=== PATIENT | male | born 1955 | race Caucasian/White ===

== ENCOUNTER 2017-12-16 12:02 | Inpatient (IN) | payer MEDICAID ==
[~2017-12-16] VITALS: Ht 172.7 cm; Wt 65.8 kg
--- NOTE | ~2017-12-16 | CN ---
PATIENT NAME:DENISSE ROSALES MEDICAL RECORD: [id number] : 55 LOCATION:[id number] ADMIT DATE: 12/16/17 ACCOUNT: [id number] CONSULTING PHYSICIAN: LILIANE AVILES MD REFERRING PHYSICIAN: BRAVO GARCÍA MD DATE OF CONSULTATION: 12/17/2017 CONSULT REQUESTING PHYSICIAN: Bravo García MD REASON FOR CONSULTATION: Pneumonia, right upper lobe. HISTORY OF PRESENT ILLNESS: Mr. Rosales is a 62-year-old gentleman who came into the ER with coughing, wheezing, and shortness of breath with mild exertion. He also is having a pleuritic type of chest pain. He was coughing yellow color sputum production. He is a lifelong smoker. REVIEW OF THE SYSTEMS: As in history of present illness. PAST MEDICAL HISTORY: Nonsignificant. ALLERGIES: No known drug allergies. MEDICATIONS: He is taking just one aspirin a day. PERSONAL AND SOCIAL HISTORY: The patient still continues to smoke. He is also drinking on regular basis. FAMILY HISTORY: Noncontributory. PHYSICAL EXAMINATION: GENERAL: Now, the patient is lying comfortably in bed. He is not in acute distress. VITAL SIGNS: The blood pressure is 116/73, pulse is 97, respiration is 20, temperature is 97.9, and SpO2 is 96% on one liter nasal cannula. HEENT: Conjunctivae are pink. Sclerae are not icteric. NECK: Neck is supple. No JVD. CHEST: There is prolonged expiration with wheezing. There is crackle at the right upper lobe. HEART: Rhythm regular. Normal sound. No murmur. ABDOMEN: Abdomen is soft. Bowel sounds present. No hepatosplenomegaly. RECTAL: Deferred. EXTREMITIES: No cyanosis. No clubbing. No pedal edema. SKIN: The skin is warm. Normal turgor. CENTRAL NERVOUS SYSTEM: The patient is awake and alert. There is no obvious cranial nerve abnormality. The gait was not tested. DIAGNOSTIC DATA: CTA of the chest; there is no pulmonary embolism. There is infiltrate in right upper lobe. There is also right middle lobe perihilar pneumonia. LABORATORY DATA: CBC; WBC 6.1, hemoglobin 13.2, hematocrit 35.4, and platelet count is 208. Chemistry; sodium is 132, potassium 3.2, BUN is 24, creatinine is 1. ABG; the pH is 7.48, pCO2 is 26.1, the pO2 is 62, and the bicarb is 19.5. This was done on the 2 liters nasal cannula. CONSULT REPORT [id number] DENISSE ROSALES IMPRESSION: 1. Acute hypoxic respiratory failure. 2. Acute exacerbation of COPD. 3. Pneumonia, right upper lobe and right middle lobe, most likely community-acquired pneumonia. 4. Tobacco dependence syndrome. 5. Hyponatremia. 6. Dyspnea. RECOMMENDATION: 1. Continue supplemental oxygen. 2. Albuterol/ipratropium nebulizer. 3. Brovana and budesonide nebulizer. 4. Methylprednisolone IV. 5. Mucolytics. 6. Followup labs and chest radiograph. 7. Nicotine patch. The patient was counseled to quit smoking. Dr. García, thank you for involving me in the care of Mr. Rosales. TRANSINT:[id number] Voice Confirmation ID: [id number] DOCUMENT ID: [id number] LILIANE AVILES MD at 1301 CC: [id number] DICTATION DATE: 12/17/17 1445 [employer] ASBESTOS: 12/17/17 1602 ADM IN [facility] [address] [place] [address]
[2017-12-16 11:41] VITALS: BP 150/97
[2017-12-16] MEDS ORDERED: BAYER CHEWABLE81 MG PO (12:06)
[2017-12-16 12:41] LABS: BASOPHILS 0.2 % (0-2); EOSINOPHILS 0 % (0-7); HEMATOCRIT 38.1 % (42.0-54.0); HEMOGLOBIN 13.2 g/dL (13.5-17.5); IMMATURE GRANULOCYTES 0.2 % (0-5); LYMPHOCYTES 5.3 % (15-50); MCH 32.8 pg (26.0-34.0); MCHC 34.6 g/dL (31.0-37.0); MCV 94.5 fL (80.0-100.0); MEAN PLATELET VOLUME 9.2 fL (7.4-10.4); MONOCYTES 2.6 % (2-11); NEUTROPHILS 91.7 % (40-80); PLATELET COUNT 188 10x3/uL (130-400); RBC 4.03 10x6/uL (4.20-6.10); RDW 12.5 % (11.5-14.5)
[2017-12-16 12:50] LABS: APTT 38.6 SECONDS (22.8-39.4); INR 1.34 (0.85-1.17); PROTIME 16.1 SECONDS (11.6-15.0)
[2017-12-16 12:51] LABS: D-DIMER-QUANTITATIVE 3.95 ug/mLFEU (0.20-0.54)
[2017-12-16 12:54] LABS: ALBUMIN 2.7 g/dL (3.4-5.0); ALKALINE PHOSPHATASE 45 U/L (46-116); ALT (SGPT) 21 U/L (10-68); CALC OSMOLALITY 266 mosm/kg (275-300); CALCIUM 8.2 mg/dL (8.5-10.1); CARBON DIOXIDE 24.4 mmol/L (21.0-32.0); CHLORIDE - SERUM 92 mmol/L (98-107); CREATININE - SERUM 1.5 mg/dL (0.6-1.3); GLUCOSE 110 mg/dL (74-106); POTASSIUM - SERUM 4.2 mmol/L (3.5-5.1); SODIUM 127 mmol/L (136-145); UREA NITROGEN 43 mg/dL (7-18); eGFR NON AFRICAN AMERICAN 50 mL/min (90-120)
[2017-12-16 13:06] LABS: CKMB 0.4 U/L (0.0-3.6); CREATINE KINASE 16 UL (21-232); PRO BNP 454 pg/mL (0-125); THYROID STIMULATING HORMONE 1.05 uIU/mL (0.36-3.74); TROPONIN-I 0.036 ng/mL (0.000-0.060)
[2017-12-16 13:26] LABS: APPEARANCE CLEAR (CLEAR); BILIRUBIN NEGATIVE (NEGATIVE); COLOR YELLOW (YELLOW); GLUCOSE NEGATIVE (NEGATIVE); KETONE NEGATIVE (NEGATIVE); NITRITE NEGATIVE (NEGATIVE); PROTEIN NEGATIVE (NEGATIVE); UROBILINOGEN NORMAL (NORMAL)
[2017-12-16 13:29] LABS: C-REACTIVE PROTEIN 49.1 mg/dL (0.0-0.9)
[2017-12-16 13:34] VITALS: BP 124/69
[2017-12-16 14:31] VITALS: BP 113/68
[2017-12-16 17:00] VITALS: BP 107/67
[2017-12-16 20:00] VITALS: BP 110/67
[2017-12-17 03:42] VITALS: BP 107/67; BMI 22.0
[2017-12-17 04:00] VITALS: BP 115/68
[2017-12-17 05:18] LABS: BASOPHILS 0.2 % (0-2); EOSINOPHILS 0.2 % (0-7); HEMATOCRIT 35.4 % (42.0-54.0); HEMOGLOBIN 13.2 g/dL (13.5-17.5); IMMATURE GRANULOCYTES 0.7 % (0-5); MCH 34.8 pg (26.0-34.0); MCHC 37.3 g/dL (31.0-37.0); MCV 93.4 fL (80.0-100.0); MEAN PLATELET VOLUME 9.8 fL (7.4-10.4); MONOCYTES 2.8 % (2-11); NEUTROPHILS 93.1 % (40-80); PLATELET COUNT 208 10x3/uL (130-400); RBC 3.79 10x6/uL (4.20-6.10); RDW 12.4 % (11.5-14.5); WBC 6.1 10x3/uL (4.8-10.8)
[2017-12-17 05:43] LABS: ALKALINE PHOSPHATASE 32 U/L (46-116); BILIRUBIN - TOTAL 0.44 mg/dL (0.2-1.3); CALCIUM 8.3 mg/dL (8.5-10.1); CHLORIDE - SERUM 98 mmol/L (98-107); MAGNESIUM - SERUM 1.4 mg/dL (1.8-2.4); SODIUM 132 mmol/L (136-145)
[2017-12-17 05:45] LABS: ALT (SGPT) 14 U/L (10-68); CALC OSMOLALITY 272 mosm/kg (275-300); GLUCOSE 164 mg/dL (74-106); POTASSIUM - SERUM 3.2 mmol/L (3.5-5.1); UREA NITROGEN 24 mg/dL (7-18); eGFR NON AFRICAN AMERICAN 80 mL/min (90-120)
[2017-12-17 09:39] VITALS: BP 110/66
[2017-12-17 12:48] VITALS: BP 116/73
[2017-12-17 16:48] VITALS: BP 119/73
[2017-12-17 20:00] VITALS: BP 130/75
[2017-12-18] VITALS: BP 116/67
[2017-12-18 04:00] VITALS: BP 134/71
[2017-12-18 07:33] LABS: BASOPHILS 0.2 % (0-2); EOSINOPHILS 0 % (0-7); HEMATOCRIT 31.5 % (42.0-54.0); HEMOGLOBIN 11.3 g/dL (13.5-17.5); IMMATURE GRANULOCYTES 1.4 % (0-5); LYMPHOCYTES 5.7 % (15-50); MCH 33.1 pg (26.0-34.0); MCHC 35.9 g/dL (31.0-37.0); MCV 92.4 fL (80.0-100.0); MEAN PLATELET VOLUME 9.3 fL (7.4-10.4); MONOCYTES 9.3 % (2-11); NEUTROPHILS 83.4 % (40-80); PLATELET COUNT 188 10x3/uL (130-400); RBC 3.41 10x6/uL (4.20-6.10); RDW 12.4 % (11.5-14.5); WBC 6.7 10x3/uL (4.8-10.8)
[2017-12-18 07:59] LABS: ALBUMIN 1.8 g/dL (3.4-5.0); ALKALINE PHOSPHATASE 32 U/L (46-116); ALT (SGPT) 13 U/L (10-68); BILIRUBIN - TOTAL 0.28 mg/dL (0.2-1.3); CALCIUM 8.1 mg/dL (8.5-10.1); CHLORIDE - SERUM 101 mmol/L (98-107); GLUCOSE 142 mg/dL (74-106); MAGNESIUM - SERUM 1.3 mg/dL (1.8-2.4); POTASSIUM - SERUM 3.2 mmol/L (3.5-5.1); PROTEIN - SERUM 4.9 g/dL (6.4-8.2); SODIUM 138 mmol/L (136-145)
[2017-12-18 08:00] LABS: CALC OSMOLALITY 279 mosm/kg (275-300); CREATININE - SERUM 0.7 mg/dL (0.6-1.3); UREA NITROGEN 17 mg/dL (7-18); eGFR NON AFRICAN AMERICAN > 90 mL/min (90-120)
[2017-12-18 08:46] VITALS: BP 127/73
[2017-12-18 12:48] VITALS: BP 122/68
[2017-12-18 16:45] VITALS: BP 120/65
[2017-12-19 06:04] LABS: BASOPHILS 0.1 % (0-2); EOSINOPHILS 0 % (0-7); HEMATOCRIT 31.4 % (42.0-54.0); HEMOGLOBIN 11.3 g/dL (13.5-17.5); IMMATURE GRANULOCYTES 5.8 % (0-5); LYMPHOCYTES 4.3 % (15-50); MCH 33.3 pg (26.0-34.0); MCV 92.6 fL (80.0-100.0); MEAN PLATELET VOLUME 9.5 fL (7.4-10.4); MONOCYTES 9.5 % (2-11); NEUTROPHILS 80.3 % (40-80); PLATELET COUNT 193 10x3/uL (130-400); RBC 3.39 10x6/uL (4.20-6.10); RDW 12.7 % (11.5-14.5)
[2017-12-19 06:18] VITALS: BP 132/71
[2017-12-19 06:19] LABS: WBC 10.1 10x3/uL (4.8-10.8)
[2017-12-19 06:36] LABS: ALBUMIN 1.8 g/dL (3.4-5.0); ALKALINE PHOSPHATASE 44 U/L (46-116); BILIRUBIN - TOTAL 0.19 mg/dL (0.2-1.3); CALC OSMOLALITY 282 mosm/kg (275-300); CALCIUM 8.4 mg/dL (8.5-10.1); CARBON DIOXIDE 29.5 mmol/L (21.0-32.0); CHLORIDE - SERUM 103 mmol/L (98-107); CREATININE - SERUM 0.7 mg/dL (0.6-1.3); GLUCOSE 161 mg/dL (74-106); MAGNESIUM - SERUM 1.4 mg/dL (1.8-2.4); PROTEIN - SERUM 5.8 g/dL (6.4-8.2); SODIUM 139 mmol/L (136-145); UREA NITROGEN 18 mg/dL (7-18); eGFR NON AFRICAN AMERICAN > 90 mL/min (90-120)
[2017-12-19 06:39] LABS: ALT (SGPT) 28 U/L (10-68); POTASSIUM - SERUM 3.3 mmol/L (3.5-5.1)
[2017-12-19 08:00] VITALS: BP 144/76
[2017-12-19 13:50] VITALS: Ht 172.7 cm; Wt 65.8 kg
[2017-12-19 18:19] VITALS: BP 107/63
[2017-12-20 05:09] VITALS: BP 101/57
[2017-12-20 06:10] LABS: BASOPHILS 0.3 % (0-2); EOSINOPHILS 0.1 % (0-7); HEMATOCRIT 33.4 % (42.0-54.0); HEMOGLOBIN 11.7 g/dL (13.5-17.5); IMMATURE GRANULOCYTES 8.4 % (0-5); LYMPHOCYTES 6.7 % (15-50); MCH 32.9 pg (26.0-34.0); MCV 93.8 fL (80.0-100.0); MEAN PLATELET VOLUME 9.4 fL (7.4-10.4); MONOCYTES 8.4 % (2-11); NEUTROPHILS 76.1 % (40-80); RBC 3.56 10x6/uL (4.20-6.10); RDW 12.9 % (11.5-14.5)
[2017-12-20 06:24] LABS: ALBUMIN 1.9 g/dL (3.4-5.0); ALKALINE PHOSPHATASE 47 U/L (46-116); BILIRUBIN - TOTAL 0.28 mg/dL (0.2-1.3); CALCIUM 8.3 mg/dL (8.5-10.1); CARBON DIOXIDE 30.7 mmol/L (21.0-32.0); CHLORIDE - SERUM 101 mmol/L (98-107); CREATININE - SERUM 0.6 mg/dL (0.6-1.3); MAGNESIUM - SERUM 1.1 mg/dL (1.8-2.4); POTASSIUM - SERUM 3.7 mmol/L (3.5-5.1); PROTEIN - SERUM 5.9 g/dL (6.4-8.2); SODIUM 137 mmol/L (136-145); UREA NITROGEN 17 mg/dL (7-18); eGFR NON AFRICAN AMERICAN > 90 mL/min (90-120)
[2017-12-20 06:25] LABS: ALT (SGPT) 46 U/L (10-68); CALC OSMOLALITY 275 mosm/kg (275-300); GLUCOSE 102 mg/dL (74-106)
[2017-12-20 06:26] LABS: PLATELET COUNT 259 10x3/uL (130-400); WBC 13.5 10x3/uL (4.8-10.8)
[2017-12-20 08:14] VITALS: BP 142/82
[2017-12-20 11:56] VITALS: BP 119/67
[2017-12-20] MEDS ORDERED: PULMICORT0.5 MG/21 UPD (12:36)
[2017-12-20] MEDS ORDERED: VENTOLIN HFA18 GM INH (12:36)
[2017-12-20] MEDS ORDERED: PREDNISONE10 MG PO (12:36)
[2017-12-20] MEDS ORDERED: Nicoderm [PBKC] TRANSDERM (12:36)
[2017-12-20] MEDS ORDERED: TESSALON PERLE100 MG PO (12:36)
[2017-12-20] MEDS ORDERED: MUCINEX600 MG PO (12:36)
[2017-12-20] MEDS ORDERED: FLORAJEN3 CAPS460 MG PO (12:36)
== END 2017-12-20 16:42 | disposition home or self-care (01) | DRG 193 ==
LOC: D.ER 12:02 → D.EDHOLD 16:25 → D.MS 16:25
PROVIDERS: Family Medicine
DX: J18.1 Lobar pneumonia, unspecified organism (principal); J96.01 Acute respiratory failure with hypoxia; J44.0 Chronic obstructive pulmonary disease with (acute) lower respiratory infection; J44.1 Chronic obstructive pulmonary disease with (acute) exacerbation; E87.1 Hypo-osmolality and hyponatremia; F17.203 Nicotine dependence unspecified, with withdrawal; E86.0 Dehydration

== ENCOUNTER → 2018-12-02 10:58 | Outpatient (CLI) | payer MEDICAID ==
[2017-12-19 13:50] VITALS: BMI 22.0
[~2018-12-02 10:58] MED LIST: BAYER CHEWABLE81 MG PO; FLORAJEN3 CAPS460 MG PO; MUCINEX600 MG PO; Nicoderm [PBKC] TRANSDERM; PREDNISONE10 MG PO; PULMICORT0.5 MG/21 UPD; TESSALON PERLE100 MG PO; VENTOLIN HFA18 GM INH
== END | disposition home or self-care (01) ==
LOC: D.RAD 10:58
PROVIDERS: ATTEND Nurse Practitioner Family
DX: M25.431 Effusion, right wrist (principal)